=== PATIENT | male | born 1945 | race Two or more races ===

== ENCOUNTER 2022-05-05 09:15 | Inpatient (IN) | payer OTHER ==
[~2022-05-05] VITALS: Ht 175.3 cm; Wt 99.8 kg
[~2022-05-05 09:15] MED LIST: OXYC1TAB9 PO; XARELTO 10MG PO
[2022-05-05] MEDS ORDERED: XTANDI40 M1 PO (13:41)
[2022-05-05] MEDS ORDERED: TOPROL XL100 M1 PO (13:42)
[2022-05-05] MEDS ORDERED: AVAPRO75 MG PO (13:42)
[2022-05-05] MEDS ORDERED: ADULT LOW DOSE81 M1 PO (13:42)
[2022-05-05] MEDS ORDERED: LOSARTAN-HCTZ1 EAC1 PO (13:42)
[2022-05-05] MEDS ORDERED: FENOFIBRATE50 MG (15:33)
[2022-05-05] MEDS ORDERED: PRAVASTATIN SOD20 MG PO (15:35)
[2022-05-05] MEDS ORDERED: METFORMIN HCL500 M3 PO (15:36)
[2022-05-05] MEDS ORDERED: CASODEX50 MG PO (15:39)
[2022-05-12] MEDS ORDERED: IRBESARTAN-HCT1 EAC1 (09:51)
== END 2022-05-20 17:53 | disposition home or self-care (01) | DRG 329 ==
LOC: EDSTATUS 09:15 → ADM 09:15 → O/R 05-09 05:54 → SURH 05-09 07:00 → ICU 05-10 22:27 → SURH 05-16 10:44
PROVIDERS: ADMIT Surgery; ATTEND Surgery
PROC: 07BB0ZZ Excision of Mesenteric Lymphatic, Open Approach (ICD-10-PCS; 2022-05-09)
PROC: 0DTP0ZZ Resection of Rectum, Open Approach (ICD-10-PCS; 2022-05-09)
PROC: 0DTN0ZZ Resection of Sigmoid Colon, Open Approach (ICD-10-PCS; 2022-05-09)
PROC: 5A1935Z Respiratory Ventilation, Less than 24 Consecutive Hours (ICD-10-PCS; 2022-05-09)
PROC: 0BH17EZ Insertion of Endotracheal Airway into Trachea, Via Natural or Artificial Opening (ICD-10-PCS; 2022-05-09)
PROC: 3E0F7GC Introduction of Other Therapeutic Substance into Respiratory Tract, Via Natural or Artificial Opening (ICD-10-PCS; 2022-05-09)
PROC: 0D1M0Z4 Bypass Descending Colon to Cutaneous, Open Approach (ICD-10-PCS; principal; 2022-05-09 07:00)
PROC: B246ZZZ Ultrasonography of Right and Left Heart (ICD-10-PCS; 2022-05-10)
PROC: BB24YZZ Computerized Tomography (CT Scan) of Bilateral Lungs using Other Contrast (ICD-10-PCS; 2022-05-10)
PROC: 4A12X4Z Monitoring of Cardiac Electrical Activity, External Approach (ICD-10-PCS; 2022-05-11)
PROC: 5A09357 Assistance with Respiratory Ventilation, Less than 24 Consecutive Hours, Continuous Positive Airway Pressure (ICD-10-PCS; 2022-05-11)
PROC: 0D9670Z Drainage of Stomach with Drainage Device, Via Natural or Artificial Opening (ICD-10-PCS; 2022-05-12)
PROC: B54DZZZ Ultrasonography of Bilateral Lower Extremity Veins (ICD-10-PCS; 2022-05-13)
PROC: 02HV33Z Insertion of Infusion Device into Superior Vena Cava, Percutaneous Approach (ICD-10-PCS; 2022-05-14)
PROC: 3E0436Z Introduction of Nutritional Substance into Central Vein, Percutaneous Approach (ICD-10-PCS; 2022-05-14)
DX: C20 Malignant neoplasm of rectum (principal); I21.A1 Myocardial infarction type 2; J69.0 Pneumonitis due to inhalation of food and vomit; I26.99 Other pulmonary embolism without acute cor pulmonale; J95.821 Acute postprocedural respiratory failure; J95.851 Ventilator associated pneumonia; J95.88 Other intraoperative complications of respiratory system, not elsewhere classified; K91.89 Other postprocedural complications and disorders of digestive system; K56.7 Ileus, unspecified; K62.5 Hemorrhage of anus and rectum; J98.11 Atelectasis; I27.20 Pulmonary hypertension, unspecified; M25.562 Pain in left knee; M79.661 Pain in right lower leg; R59.0 Localized enlarged lymph nodes; K57.30 Diverticulosis of large intestine without perforation or abscess without bleeding; Z53.31 Laparoscopic surgical procedure converted to open procedure; G47.33 Obstructive sleep apnea (adult) (pediatric); I25.10 Atherosclerotic heart disease of native coronary artery without angina pectoris; I10 Essential (primary) hypertension; E11.9 Type 2 diabetes mellitus without complications; Z79.84 Long term (current) use of oral hypoglycemic drugs; Z79.4 Long term (current) use of insulin; Z95.5 Presence of coronary angioplasty implant and graft